=== PATIENT | female | born 1950 | race Caucasian/White ===

== ENCOUNTER 2021-10-20 16:36 | Emergency (ER) | payer MEDICARE, OTHER, SELFPAY ==
[2021-10-20] MEDS ORDERED: LATA0.0015 (17:01)
[2021-10-20] MEDS ORDERED: TRAV04OPD (17:01)
== END 2021-10-20 18:47 | disposition expired ==
LOC: M ED 16:36
DX: I46.9 Cardiac arrest, cause unspecified (principal)

== ENCOUNTER → 2021-10-21 | Outpatient (REF) ==
[~2021-10-21] MED LIST: LATA0.0015; TRAV04OPD
== END ==
LOC: M LAB 09:18